=== PATIENT | female | born 2000 | race Caucasian/White ===

== ENCOUNTER 2022-07-14 02:20 | Emergency (ER) | payer BC, MEDICAID, OTHER, SELFPAY ==
[2022-07-14] MEDS ORDERED: Bacitracin 1 PK ONE (03:27)
[2022-07-14] MEDS ORDERED: Boostrix 0.5 ML (Tdap) VIAL (>/=7 yrs of age) ONE (03:32)
== END 2022-07-14 04:20 | disposition home or self-care (01) ==
LOC: CSHERS 02:20
DX: S01.81XA Laceration without foreign body of other part of head, initial encounter (principal); Z23 Encounter for immunization; W22.8XXA Striking against or struck by other objects, initial encounter
CPT/HCPCS: 12011; 90471; 90715

== ENCOUNTER 2022-07-21 03:46 | Emergency (ER) | payer BC | END 2022-07-21 04:16 | disposition home or self-care (01) | LOC: CSHERS 03:46 | DX: S01.112D Laceration without foreign body of left eyelid and periocular area, subsequent encounter (principal); X58.XXXD Exposure to other specified factors, subsequent encounter ==